=== PATIENT | male | born 1970 | race Caucasian/White ===

== ENCOUNTER 2019-05-19 09:06 | Emergency (ER) | payer OTHER ==
[2019-05-19 09:21] VITALS: BP 121/85
--- NOTE | 2019-05-19 09:34 | UC ---
Lower Extremity/Ankle HPI - HPI Summary HPI Summary: 48 y/o M w history of a previous fifth metatarsal fracture and presents with right foot pain. Patient noticed 3 weeks ago he might have hit his on something , has had continued pain to the second MTP on the dorsal side. Patient states pain is achy, 6/10 and does not radiate. Patient states that he was playing volleyball last night and the pain worsened does not think he injured it last night. He is concerned that he may have injured it 3 weeks ago and would like to check an x-ray. No pain near his old fracture site. No ankle or knee pain. - History of Current Complaint Chief Complaint: UCLowerExtremity Stated Complaint: RT FOOT INJURY Time Seen by Provider: 05/19/19 09:16 Pain Intensity: 6 - Allergies/Home Medications Allergies/Adverse Reactions: Allergies Allergy/AdvReac Type Severity Reaction Status Date / Time No Known Allergies Allergy Verified 05/19/19 09:21 Home Medications: Home Medications NK [No Home Medications Reported] 05/19/19 [History Confirmed 05/19/19] PMH/Surg Hx/FS Hx/Imm Hx Previously Healthy: Yes - Surgical History Surgical History: Yes Surgery Procedure, Year, and Place: right reconstruction foot, back surgery - Family History Known Family History: Positive: Non-Contributory - Social History Alcohol Use: Occasionally Substance Use Type: None Smoking Status (MU): Former Smoker When Did the Patient Quit Smoking/Using Tobacco: 25 yrs ago Review of Systems All Other Systems Reviewed And Are Negative: Yes Musculoskeletal: Positive: Arthralgia Physical Exam - Summary Physical Exam Summary: General: Well appearing, no distress Cardiovascular: Skin is well perfused Pulmonary: No respiratory distress, no tachypnea Abdomen: Non-distended MSK: RLE: no deformity effusions, soft tissue swelling or discoloration, no crepitus palpated, compartments soft and compressible SILT 2+ DP, brisk cap refill x 5 Knee: no ttp Ankle: no ttp, FROM without pain, no instability Foot: TTP w ecchmyosis to base of 2nd MTP Skin: ecchymosis to dorsum R foot Psych: Normal affect Neuro: A&Ox3 Vital Signs: Initial Vital Signs Temp 36.5 C 05/19/19 09:17 Pulse 78 05/19/19 09:17 Resp 16 05/19/19 09:17 BP 121/85 08/01/19 09:17 Pulse Ox 97 05/19/19 09:17 Diagnostics - Radiology No standard instances Radiology Interpretation Completed By: Radiologist - Patient Name: LATRICE JESSICA Medical Record#: [id number] Ordering Physician: Beto Trejo MD Acct.#: [id number] : 1970 Age: 48 Sex: M Location: [facility] Exam Date: 05/19/19926 ADM Status: REG ER Order Information: FOOT RIGHT 3+ VWS Accession Number: [id number] CPT: 52640 Indication: RIGHT foot pain; struck on top of foot 2 weeks ago. Previous fifth metatarsal fracture. Comparison: No relevant prior exams available on the [facility] for comparison. Technique: AP, lateral, and oblique views RIGHT foot. REPORT AND IMPRESSION: #. Healed diaphyseal fracture of the fifth metatarsal. #. No acute fracture or articular malalignment. Re-Evaluation - Re-Evaluation First Eval Re-Evaluation Time: 09:55 Comment: XR neg for fr. Lower Extremity Course/Dx - Course Course Of Treatment: 48 y/o male w R foot pain, unsure of trauma - check XR. - Differential Dx/Diagnosis Provider Diagnosis: Foot pain, right Discharge - Sign-Out/Discharge Documenting (check all that apply): Patient Departure All imaging exams completed and their final reports reviewed: Yes - Discharge Plan Condition: Stable Disposition: HOME Patient Education Materials: Foot Sprain (ED) Referrals: [facility] [Outside] Angelina Iglesias MD [Medical Doctor] - Additional Instructions: You were seeen at urgent care for right foot pain. X-ray shows an old healing fracture of the fifth metatarsal. If any lab work or imaging was not completed at the time of discharge, you will be called with any relevant results. Please seek medical attention or go to the emergency department for any worsening or concerning symptoms. Please follow up with her primary care doctor in 2-3 days. It was a pleasure taking care of you today. - Billing Disposition and Condition Condition: STABLE Disposition: Home
== END 2019-05-19 09:58 | disposition home or self-care (01) ==
LOC: UCEAST 09:06
DX: M79.671 Pain in right foot (principal); Z87.891 Personal history of nicotine dependence
CPT/HCPCS: 99201; G0463